=== PATIENT | female | born 1995 | race American Indian/Alaskan Native ===

== ENCOUNTER 2018-12-18 08:44 | Emergency (ER) | payer MEDICAID ==
[2018-12-18 08:58] VITALS: BP 121/69
--- NOTE | 2018-12-18 09:46 | XRay Report ---
CHEST 1 VIEW INDICATION: Chest Pain. COMPARISON: None FINDINGS: Support devices: None. Heart: Within normal limits. Lungs/Pleura: No acute air space or interstitial disease. Additional findings: Appears things are noted. IMPRESSION: Normal chest x-ray. Signer Name: Moreno Romeo Jr, MD Signed: 12/18/2018 9:42 AM Workstation Name: [id number]
[2018-12-18 10:09] LABS: HCG Qualitative,Urine Negative (Negative)
[2018-12-18 10:10] LABS: Bacteria,Urine 1+ /HPF (Negative); Bilirubin,Urine NEG (Negative); Blood,Urine SM (Negative); Color,Urine Yellow (Yellow); Mucus,Urine FEW /HPF; Protein,Urine <15 mg/dL mg/dL (Negative); Urobilinogen,Urine < 2.0 mg/dL (<2.0)
--- NOTE | 2018-12-18 15:34 | Emergency Department Report ---
ED Female HPI - General Chief complaint: Chest Pain Stated complaint: CHEST PAIN Time Seen by Provider: 12/18/18 09:47 Source: patient Mode of arrival: Ambulatory Limitations: No Limitations - History of Present Illness MD Complaint: dysuria -: Gradual, unknown Location: suprapubic Radiation: non-radiating Severity: mild Quality: burning Consistency: intermittent Worsens with: urination, other Are you Now?: No Associated Symptoms: dysuria. denies: vaginal discharge, vaginal bleeding, abdominal pain, shortness of breath, syncope, weakness - Related Data Sexually active: No (no sex in over one year) Previous Rx's Medication Instructions Recorded Last Taken Type Phenazopyridine [Pyridium] 200 mg PO TID #10 tab 12/18/18 Unknown Rx Sulfamethoxazole/Trimethoprim 1 each PO BID #20 tablet 12/18/18 Unknown Rx [Bactrim DS TAB] Allergies Allergy/AdvReac Type Severity Reaction Status Date / Time No Known Allergies Allergy Unverified 12/18/18 08:57 ED Review of Systems ROS: Stated complaint: CHEST PAIN Other details as noted in HPI Comment: All other systems reviewed and negative ED Past Medical Hx - Past Medical History Previous Medical History?: No - Surgical History Past Surgical History?: No - Social History Smoking Status: Never Smoker - Medications Home Medications: Home Medications Medication Instructions Recorded Confirmed Last Taken Type Phenazopyridine [Pyridium] 200 mg PO TID #10 tab 12/18/18 Unknown Rx Sulfamethoxazole/Trimethoprim 1 each PO BID #20 tablet 12/18/18 Unknown Rx [Bactrim DS TAB] ED Physical Exam - General Limitations: No Limitations General appearance: alert, in no apparent distress - Head Head exam: Present: atraumatic, normocephalic - Eye Eye exam: Present: normal appearance, PERRL, EOMI Pupils: Present: normal accommodation - ENT ENT exam: Present: mucous membranes moist - Neck Neck exam: Present: normal inspection - Respiratory Respiratory exam: Present: normal lung sounds bilaterally. Absent: respiratory distress - Cardiovascular Cardiovascular Exam: Present: regular rate, normal rhythm. Absent: systolic murmur, diastolic murmur, rubs, gallop - GI/Abdominal GI/Abdominal exam: Present: soft, normal bowel sounds - Extremities Exam Extremities exam: Present: normal inspection - Back Exam Back exam: Present: normal inspection - Neurological Exam Neurological exam: Present: alert, oriented X3 - Psychiatric Psychiatric exam: Present: normal affect, normal mood - Skin Skin exam: Present: warm, dry, intact, normal color. Absent: rash ED Course Vital Signs 12/18/18 12/18/18 08:55 09:25 Temperature 98.6 F Pulse Rate 86 Respiratory 16 15 Rate Blood Pressure 121/69 O2 Sat by Pulse 100 Oximetry ED Medical Decision Making - Medical Decision Making 3-year-old [place] female to the emergency department complaining of increased urinary urgency increase urinary frequency, decreased urinary production and some burning with urination, but no vaginal discharge or vaginal bleeding. She denies any history of chest pain. States that she has no chest pain. She simply stated that she had chest pain to get back in the emergency department faster to be seen. I discussed with her about a chest pain workup. She stated it was not necessary due to her being chest pain-free Critical care attestation.: If time is entered above; I have spent that time in minutes in the direct care of this critically ill patient, excluding procedure time. ED Disposition Clinical Impression: UTI (urinary tract infection) Disposition: DC- TO HOME OR SELFCARE Is pt being admited?: No Does the pt Need Aspirin: No Condition: Stable Instructions: Phenazopyridine (By mouth), Urinary Tract Infection in Women (ED) Prescriptions: Sulfamethoxazole/Trimethoprim [Bactrim DS TAB] 1 each PO BID #20 tablet Phenazopyridine [Pyridium] 200 mg PO TID #10 tab Referrals: [facility] [Provider Group] - 3-5 Days
== END 2018-12-18 10:45 | disposition home or self-care (01) ==
LOC: ED 08:44
DX: N39.0 Urinary tract infection, site not specified (principal); Z79.899 Other long term (current) drug therapy
CPT/HCPCS: 71045; 81001; 81025; 93005; 93010

== ENCOUNTER 2019-04-17 15:04 | Emergency (ER) | payer SELFPAY | END 2019-04-17 15:15 | disposition left against medical advice (07) | LOC: ED 15:04 | DX: R52 Pain, unspecified (principal); Z53.21 Procedure and treatment not carried out due to patient leaving prior to being seen by health care provider ==